=== PATIENT | female | born 1975 | race Caucasian/White ===

== ENCOUNTER 2017-08-28 23:53 | Emergency (ER) | payer OTHER ==
[~2017-08-28] VITALS: Ht 157.5 cm; Wt 81.8 kg
[~2017-08-28 23:53] MED LIST: AMOX500C2 PO; CITA10TA68 PO; PRED20 PO
[2017-08-29] MEDS ORDERED: DIVA500T35 PO (00:04)
[2017-08-29] MEDS ORDERED: HYDR-309 PO (00:04)
[2017-08-29] MEDS ORDERED: LAMO25 PO (00:04)
[2017-08-29] MEDS ORDERED: LEVO25TA9 PO (00:04)
[2017-08-29] MEDS ORDERED: DIVA250T25 PO (00:04)
[2017-08-29] MEDS ORDERED: LORA1TAB3 PO (00:04)
[2017-08-29] MEDS ORDERED: PROP10TA73 PO (00:04)
[2017-08-29] MEDS ORDERED: ZOLP10TA7 PO (00:04)
[2017-08-29] MEDS ORDERED: HYDR200T4 PO (00:04)
[2017-08-29] MEDS ORDERED: TRAZ-147 PO (00:04)
[2017-08-29] MEDS ORDERED: PRIM50 PO (00:04)
[2017-08-29] MEDS ORDERED: NAPR-1193 PO (00:04)
[2017-08-29] MEDS ORDERED: ARIP5TAB8 PO (00:04)
[2017-08-29 01:22] LABS: BASOPHILS % (AUTO) 0.8 % (0.0-2.0); HEMATOCRIT 36.5 % (36-46); HEMOGLOBIN 12.6 g/dL (12.0-16.0); LYMPHOCYTES # (AUTO) 3.3 K/uL (1.0-4.8); LYMPHOCYTES % (AUTO) 35.8 % (22.0-44.0); MEAN CORPUSCULAR HEMOGLOBIN 31.9 pg (26.0-34.0); MEAN CORPUSCULAR HGB CONC 34.4 G/dL (31.0-37.0); MEAN CORPUSCULAR VOLUME 93 fL (80-100); MONOCYTES # (AUTO) 1.3 K/uL (0.1-1.0); MONOCYTES % (AUTO) 14.3 % (2.0-9.0); NEUTROPHILS # (AUTO) 4.3 K/uL (1.8-7.7); NEUTROPHILS % (AUTO) 47.1 % (40.0-70.0); PLATELET COUNT (AUTO) 268 K/uL (150-450); RED BLOOD CELL COUNT(AUTO) 3.93 MIL/uL (4.00-5.20)
[2017-08-29 01:28] LABS: ANION GAP 7 mmol/L (8-16); CALCIUM, TOTAL 8.6 mg/dL (8.8-10.5); CARBON DIOXIDE 30 mmol/L (22-29); CHLORIDE 102 mmol/L (98-107); CREATININE 0.87 mg/dL (0.60-1.30); GLOMERULAR FILTR. RATE CALC > 60 mL/min (>60); GLUCOSE,RANDOM 88 mg/dL (70-110); POTASSIUM 3.6 mmol/L (3.5-5.1); SODIUM SERUM 139 mmol/L (136-145); UREA NITROGEN, BLOOD 19 mg/dL (7-18)
[2017-08-29 01:31] LABS: PROTHROMBIN TIME 10.9 SEC (9.4-11.6)
[2017-08-29] MEDS ORDERED: TraZODone HCL 50 MG TABLET PO ONE (01:45)
[2017-08-29] MEDS ORDERED: KETOROLAC TROMETHAMINE 30 MG/ML VIAL IVP ONE (01:45)
[2017-08-29 01:52] LABS: ALANINE AMINOTRANSFERASE 27 U/L (12-78); ALBUMIN 3.5 g/dL (3.4-5.0); ALKALINE PHOSPHATASE 58 U/L (46-116); ASPARTATE AMINOTRANSFERASE 21 U/L (15-37); BILIRUBIN,TOTAL 0.2 mg/dL (0.1-1.0); CREATINE KINASE, TOTAL 137 U/L (26-192); TOTAL PROTEIN, SERUM 6.7 g/dL (6.4-8.2)
[2017-08-29 01:55] LABS: APPEARANCE,URINE CLEAR (CLEAR); BILIRUBIN,URINE NEGATIVE (NEGATIVE); GLUCOSE, URINE (UA) NEGATIVE (NEGATIVE); KETONES,URINE NEGATIVE (NEGATIVE); LEUKOCYTE ESTERASE ,URINE NEGATIVE (NEGATIVE); NITRATE,URINE NEGATIVE (NEGATIVE); OCCULT BLOOD,URINE SMALL (NEGATIVE); PROTEIN,URINE NEGATIVE (NEGATIVE); UROBILINOGEN,URINE 0.2 mg/dL (<=1.0)
[2017-08-29 02:22] LABS: BACTERIA,URINE Rare /HPF (None Seen); SQUAMOUS EPITHELIAL CELL,UR Rare /LPF (None Seen); WBC,URINE 0-2 /HPF (0-5)
[2017-08-29 03:26] VITALS: BP 129/71
== END 2017-08-29 03:28 | disposition home or self-care (01) ==
LOC: EMS 23:54
DX: M54.6 Pain in thoracic spine (principal); R07.89 Other chest pain; F41.9 Anxiety disorder, unspecified; Z88.5 Allergy status to narcotic agent
CPT/HCPCS: 36415; 71010; 80053; 81001; 82550; 82553; 84484; 85025; 85610; 85730; 93005; 96374; 99285; J1885

== ENCOUNTER 2021-04-26 22:16 | Emergency (ER) | payer OTHER ==
[~2021-04-26] VITALS: Ht 157.5 cm; Wt 68.2 kg
[~2021-04-26 22:16] MED LIST changes: -AMOX500C2 PO; +ARIP5TAB37 PO; -CITA10TA68 PO; +DIVA-111 PO; +DIVA-112 PO; +HYDR-309 PO; +HYDR200T4 PO; +LAMO25TA25 PO; +LEVO25TA9 PO; +LORA-1000 PO; +NAPR-1193 PO; -PRED20 PO; +PRIM50 PO; +PROP10TA73 PO; +TRAZ-257 PO; +ZOLP10TA8 PO
[2021-04-27] MEDS ORDERED: IBUPROFEN 800 MG TABLET PO ONE (00:30)
[2021-04-27 01:22] VITALS: BP 129/74
== END 2021-04-27 01:26 | disposition home or self-care (01) ==
LOC: EMS 22:18
DX: S60.212A Contusion of left wrist, initial encounter (principal); F41.9 Anxiety disorder, unspecified; Z88.5 Allergy status to narcotic agent; Z79.899 Other long term (current) drug therapy; Y04.0XXA Assault by unarmed brawl or fight, initial encounter; Y93.89 Activity, other specified; Y92.89 Other specified places as the place of occurrence of the external cause; Y99.8 Other external cause status
CPT/HCPCS: 99283